=== PATIENT | male | born 1995 | race African-American/Black ===

== ENCOUNTER 2018-07-15 08:43 | Emergency (ER) | payer OTHER ==
[~2018-07-15] VITALS: Ht 167.6 cm; Wt 86.2 kg
== END 2018-07-15 11:39 | disposition home or self-care (01) ==
LOC: ER 08:43
DX: J06.9 Acute upper respiratory infection, unspecified (principal)

== ENCOUNTER 2020-09-03 05:20 | Emergency (ER) | payer OTHER ==
[~2020-09-03] VITALS: Ht 170.2 cm; Wt 80.7 kg
== END 2020-09-03 14:33 | disposition home or self-care (01) ==
LOC: ER 05:20
DX: K29.70 Gastritis, unspecified, without bleeding (principal); R10.84 Generalized abdominal pain

== ENCOUNTER 2021-10-24 09:55 | Emergency (ER) | payer OTHER ==
[~2021-10-24] VITALS: Ht 170.2 cm; Wt 83.0 kg
[2021-10-24] MEDS ORDERED: DICLOFENAC POTA50 MG PO (11:44)
[2021-10-24] MEDS ORDERED: ORPHENADRINE C100 MG PO (11:44)
== END 2021-10-24 12:16 ==
LOC: ER 09:55
DX: S93.402A Sprain of unspecified ligament of left ankle, initial encounter (principal); X50.0XXA Overexertion from strenuous movement or load, initial encounter; Y93.89 Activity, other specified; Y92.69 Other specified industrial and construction area as the place of occurrence of the external cause; Y99.8 Other external cause status